=== PATIENT | female | born 1960 | race Caucasian/White ===

== ENCOUNTER 2025-05-19 22:47 | Inpatient (IN) ==
--- NOTE | 2025-05-19 23:12 | Emergency Department Note ---
Impression & Plan Small bowel obstruction Admission ED Provider Note HPI: History obtained from patient and at bedside. The patient is a 65-year-old female who presents the emergency department with a chief complaint of nausea and vomiting. Patient states that she has significant past abdominal surgical history including appendectomy, cholecystectomy, tubal ligation, as well as partial large bowel resection that she states was for "slow transit". Patient states all of the surgeries were done in [place] where she lives, patient states that she is currently in town visiting family for the holidays. Patient states earlier today she developed some generalized abdominal pain and had several episodes of vomiting. She states this does feel similar to small bowel obstructions that she has had in the past. On arrival here to the ED the patient is hemodynamically stable, she complains of nausea but otherwise appears to be in no acute distress on my initial assessment. ROS: - Per HPI Differential Diagnosis: Viral gastroenteritis, small bowel obstruction, ischemic bowel, acute colitis, acute pancreatitis, acute gastritis/peptic ulcer disease, amongst other potential pathologies. *Outpatient medications and allergy history reviewed. PE: General: Alert, obese, no acute distress HEENT: Normocephalic, trachea midline Eyes: Extraocular eye movement is intact, no scleral erythema Pulmonary: Clear to auscultation bilaterally, no wheezing Cardio: Regular rate and rhythm GI: Abdomen is soft to palpation, moderate distention, there is tenderness to palpation without guarding or rigidity : No suprapubic tenderness MSK: No evidence of trauma or malformation of the extremities, no edema Skin: No evidence of rash Neuro: Alert, no focal deficits Psychiatric: Cooperative INDEPENDENT INTERPRETATIONS: cardiac monitor technician: (As interpreted by myself): - An order was placed for continuous cardiac monitoring - Patient was noted to be in sinus rhythm with a rate of 75 Interventions provided in ED: - IV fluid bolus, IV morphine, IV Zofran Medical Decision Making: IV was established and lab work obtained, patient was placed on hall monitor. Lab work shows no leukocytosis, hemoglobin is normal, platelet count is normal, CMP does not show any evidence of any critical findings. Lactic acid is normal. CT imaging of the abdomen pelvis was obtained, there is evidence of small bowel obstruction. Patient was given IV fluids as well as IV morphine and IV Zofran with some improvement in her pain. She initially declined NG tube but then was in agreement. General surgery was consulted, I discussed the patient's presentation with Clayton Garcia PA-C, he is working with Dr. Chandler Garcia. They are in agreement for consultation. I also did discuss the patient's case with the on- call hospitalist, Dr. Patino, and the patient was placed for admission in stable condition. Patient was in agreement to this plan, all findings were discussed with the patient and her at the bedside. Consultants/Discussions held with other healthcare providers: - General Surgery, Dr. Chandler Garcia - Hospitalist, Dr. Patino Disposition discussion held by myself with: - Patient and at bedside Diagnosis: 1. Small bowel obstruction, acute Disposition: Admission Cortez Jones DO Emergency Medicine Past Med/Surg History Problem List Small bowel obstruction Medical History Hx of migraines Bipolar 2 disorder Depression Surgical History History of exploratory laparotomy History of partial colectomy History of cholecystectomy History of appendectomy History of tonsillectomy Social History Smoking Status: Never smoker Preferred Language: Macedonian Feels Safe at Home: Yes Allergies Allergies Allergy/AdvReac Type Severity Reaction Status Date / Time nitrofurantoin Allergy Mild Rash Verified 05/19/25 23:59 [From Macrobid] Home Meds Home Medications Medication Instructions Recorded Confirmed fluticasone propionate 50 2 spray intranasal PM 05/01/24 05/20/25 mcg/actuation nasal spray,suspension lamotrigine 100 mg tablet 150 mg PO QAM 05/01/24 05/20/25 oxdrcerm-ykrwkjq-ynky-lutein tablet 1 tab PO PM 05/01/24 05/20/25 cariprazine 1.5 mg capsule 1.5 mg PO QAM 05/19/25 05/20/25 (Vraylar) quetiapine 100 mg tablet 200 mg PO HS 05/19/25 05/20/25 quetiapine 25 mg tablet 25 mg PO TID PRN MANIC SYMPTOMS 05/19/25 05/20/25 Results & Data (ED) Vital Signs Vital Signs - 24 hr 05/19/25 22:52 05/19/25 23:32 05/19/25 23:42 Temperature 36.9 C Temperature Source Temporal Artery Scan Pulse Rate 78 63 Pulse Rate [Apical] Pulse Rate from SpO2 Sensor Pulse Rhythm Regular Pulse Rhythm [Apical] Pulse Strength Normal Respiratory Rate 18 Respiratory Effort / Characteristics Non-Labored Spontaneous Respiratory Depth Normal Respiratory Pattern Regular Blood Pressure 138/88 Blood Pressure [Left Arm] Blood Pressure Mean 104 Blood Pressure Mean [Left Arm] Blood Pressure Position Sitting Pulse Oximetry 97 97 Oxygen Delivery Method Room Air Room Air Sepsis Recent Fever Within 48 Hours No Sepsis New/Unexplained Change in Mental Status N/A Sepsis Action Taken by Nursing No Action Required 05/20/25 00:37 05/20/25 01:00 05/20/25 01:30 Temperature Temperature Source Pulse Rate 61 56 L Pulse Rate [Apical] 65 Pulse Rate from SpO2 Sensor 59 L 56 L Pulse Rhythm Pulse Rhythm [Apical] Regular Pulse Strength Respiratory Rate 16 19 17 Respiratory Effort / Characteristics Non-Labored Spontaneous Respiratory Depth Normal Respiratory Pattern Regular Blood Pressure Blood Pressure [Left Arm] 129/71 Blood Pressure Mean Blood Pressure Mean [Left Arm] 90 Blood Pressure Position Pulse Oximetry 98 90 94 Oxygen Delivery Method Room Air Room Air Room Air Sepsis Recent Fever Within 48 Hours Sepsis New/Unexplained Change in Mental Status Sepsis Action Taken by Nursing 05/20/25 01:45 05/20/25 02:00 05/20/25 02:30 Temperature Temperature Source Pulse Rate 61 66 72 Pulse Rate [Apical] Pulse Rate from SpO2 Sensor 63 Pulse Rhythm Pulse Rhythm [Apical] Pulse Strength Respiratory Rate 17 16 15 Respiratory Effort / Characteristics Respiratory Depth Respiratory Pattern Blood Pressure 121/72 137/79 116/72 Blood Pressure [Left Arm] Blood Pressure Mean 88 98 86 Blood Pressure Mean [Left Arm] Blood Pressure Position Pulse Oximetry 91 95 98 Oxygen Delivery Method Room Air Room Air Room Air Sepsis Recent Fever Within 48 Hours Sepsis New/Unexplained Change in Mental Status Sepsis Action Taken by Nursing Laboratory Data 05/19/25 23:32 05/19/25 23:32 Lab Results 05/19/25 Range/Units 23:32 WBC 7.70 (4.8-10.8) K/ul RBC 4.48 (4.20-5.40) M/uL Hgb 13.6 (12.0-16.0) g/dL Hct 38.9 (37.0-47.0) % MCV 86.8 (80.0-100.0) fL MCH 30.4 (25.0-34.0) pg MCHC 35.0 (32.0-36.0) g/dL RDW Std Deviation 40.6 (36.4-46.3) fL RDW Coeff of Lissette 12.8 (11.5-14.5) % Plt Count 269 (130-400) K/uL MPV 8.7 L (9.4-12.4) fL Immature Gran % (Auto) 0.4 % Neut % (Auto) 82.9 % Lymph % (Auto) 11.6 % [place] % (Auto) 4.4 % Eos % (Auto) 0.3 % Baso % (Auto) 0.4 % Neut # (Auto) 6.39 (1.40-6.50) K/uL Lymph # (Auto) 0.89 L (1.20-3.40) K/uL [place] # (Auto) 0.34 (0.11-0.59) K/uL Eos # (Auto) 0.02 (0.00-0.50) K/uL Baso # (Auto) 0.03 (0.00-0.20) K/uL Immature Gran # (Auto) 0.03 (0.01-0.20) K/uL PT 11.0 (9.0-12.0) Seconds INR 1.0 (0.9-1.1) Sodium 138 (136-145) mmol/L Potassium 4.0 (3.5-5.1) mmol/L Chloride 102 (98-107) mmol/L Carbon Dioxide 26 (21-32) mmol/L Anion Gap 10 (3-11) BUN 16 (6-23) mg/dl Creatinine 0.83 (0.6-1.2) mg/dl Est Cr Clr Drug Dosing 78.4 ml/min eGFR 78.18 BUN/Creatinine Ratio 19.3 (10-20) Glucose 129 H (70-99(Fasting)) mg/dl Lactate 1.4 (0.4-2.0) mmol/L Calcium 10.1 (8.6-10.3) mg/dl Total Bilirubin 0.9 (0.2-1.0) mg/dl AST 19 (13-39) U/L ALT 16 (7-52) U/L Alkaline Phosphatase 53 (34-104) U/L Total Protein 7.5 (6.0-8.3) gm/dl Albumin 4.6 (3.4-5.0) gm/dl Globulin 2.9 (2.5-4.0) gm/dl Albumin/Globulin Ratio 1.6 (0.9-2) Lipase 7 L (11-82) U/L Administered Medications Sodium Chloride (Nss) 1,000 mls @ 100 mls/hr IV .Q10H ABELARDO Stop: 05/20/25 23:14 Last Admin: 05/20/25 03:13 Dose: 100 mls/hr Documented By: vgr Discontinued Medications Sodium Chloride (Nss) 1,000 mls @ 999 mls/hr IV .Q1H1M STA Stop: 05/20/25 00:06 Last Infusion: 05/20/25 00:40 Dose: Infused Documented By: Admin: 05/19/25 23:39 Dose: 999 mls/hr Documented By: KISHORE Ioversol (Optiray 320 100ml) 94 ml IV ONCE ONE Stop: 05/20/25 00:18 Last Admin: 05/20/25 00:18 Dose: 94 ml Documented By: ESTHER Morphine Sulfate (Morphine Sulfate 4 Mg/Ml 1 Ml Carp\\Vial) 4 mg IV NOW STA Stop: 05/19/25 23:07 Last Admin: 05/19/25 23:35 Dose: 4 mg Documented By: KISHORE Morphine Sulfate (Morphine Sulfate 4 Mg/Ml 1 Ml Carp\\Vial) 4 mg IV NOW STA Stop: 05/20/25 00:46 Last Admin: 05/20/25 00:49 Dose: 4 mg Documented By: KISHORE Morphine Sulfate (Morphine Sulfate 4 Mg/Ml 1 Ml Carp\\Vial) 4 mg IV NOW STA Stop: 05/20/25 03:03 Last Admin: 05/20/25 03:07 Dose: 4 mg Documented By: janette Ondansetron HCl (Ondansetron Inj 2 Mg/Ml 2 Ml Vial) 4 mg IV NOW STA Stop: 05/19/25 23:07 Last Admin: 05/19/25 23:35 Dose: 4 mg Documented By: KISHORE Imaging Data Radiologist's Impression: Abdomen/Pelvis CT 05/19/25 23:06 EXAM: CT abd pelvis IV con only CLINICAL HISTORY: N/V, eval for SBO TECHNIQUE: CT of the abdomen and pelvis was performed with 94cc Optiray 320 contrast, with the following protocol: axial images with, and reconstructed coronal and sagittal images. One of the following dose reduction techniques was utilized for this exam: Automated exposure control, adjustment of the mA and/or kV according to patient size, and use of iterative reconstruction. COMPARISON: 05/01/2024 CT. FINDINGS: Abdomen: Liver: Normal in size, shape, and density. No focal lesions, cysts, or masses were identified. Hepatic vasculature and biliary ducts are unremarkable. Gallbladder and Biliary System: Cholecystectomy clips are noted. Pancreas: Pancreatic head, body, and tail are visualized and appear normal in size and density. No pancreatic masses or calcifications were noted. The pancreatic duct is not dilated. Spleen: Normal in size, shape, and density. No splenic lesions or masses were identified. Kidneys and Adrenal Glands: Both kidneys are normal in size, shape, and position. Still noted left renal upper calyx small stone measuring 21x26 mm. Cortical thickness is within normal limits. Prominent bilateral extrarenal pelvises. No right renal calculi or bilateral hydronephrosis. Adrenal glands are unremarkable with no evidence of masses or hyperplasia. Pelvis: Urinary Bladder: Normal in contour and wall thickness. No intraluminal lesions identified. Uterus: Normal in size and contour. No masses or abnormal thickening. Ovaries: Not well visualized but no gross abnormalities noted. Vagina: Still noted dense soft tissue surrounding the perineum. Cervix: No evidence of mass or abnormal thickening. Peritoneal and Retroperitoneal Structures: No lymphadenopathy was noted. Bowel: Unchanged diastases recti. Post-colectomy status with ileocolic anastomosis. Newly developed multiple dilated small bowel loops, predominantly involving the ileum, measuring up to 4 cm in diameter, with air?fluid levels and fecalized contents. A transition point is noted within the ileal loops, associated with uniform mural thickening, likely related to post-operative, adhesive band, or inflammatory changes. No definite obstructing mass is identified. No evidence of pneumoperitoneum. The ileocolic anastomosis also shows a focal dilatation of a small bowel loop associated with fecal matter. Minimal intraperitoneal free fluid is seen in-between bowel loops. Still noted uniform thickening of the gastroesophageal junction. Bones and Soft Tissues: Pelvic bones and soft tissues are unremarkable. No fractures or abnormal masses were identified. IMPRESSION: 1. Post-colectomy with ileocolic anastomosis. Findings are consistent with small bowel obstruction, predominantly involving the ileum, with a transition point, dilated loops, fecalized content and minimal free fluid. Likely post-operative, adhesive band or inflammatory in etiology (A new finding). No definite mass or pneumoperitoneum identified. 2. Left renal upper calyx stone (21×26 mm) persists. 3. Unchanged dense soft tissue noted surrounding the perineum. Clinical correlation is advised. Electronically signed by Geovany Cyr 05-20-2025 02:04 AM Discharge Plan Visit Data Chief Complaint: GI Assessment Stated Complaint: OBSTRUCTED BOWEL, ABD PAIN, VOMITTING ED Provider: Cortez Jones Discharge Problem: Small bowel obstruction Patient Disposition: Admitted As Inpatient Condition: Fair Forms Stand Alone Forms: [facility] Prescriptions Prescriptions: No Action fluticasone propionate 50 mcg/actuation spray,suspension 2 spray INTRANASAL PM lamotrigine 100 mg tablet 150 mg PO QAM Centrum Silver Ultra Women's Tablet 1 tab PO PM quetiapine 25 mg tablet 25 mg PO TID PRN (Reason: MANIC SYMPTOMS) quetiapine 100 mg tablet 200 mg PO HS Vraylar 1.5 mg capsule 1.5 mg PO QAM Referrals Referrals: PCP,NO [Physician] -
[2025-05-19] MEDS: ONDANSETRON INJ 2 MG/ML 2 ML VIAL IV STA (23:35)
[2025-05-19] MEDS: MoRPHine SULFATE 4 MG/ML 1 ML CARP\\VIAL IV STA (23:35)
[2025-05-19] MEDS: SODIUM CHLORIDE 0.9% 1,000 ML IV STA (23:39)
[2025-05-19 23:43] LABS: Hematocrit (blood only) 38.9 % (37.0-47.0); Hemoglobin 13.6 g/dL (12.0-16.0); Immature Granulocytes # (auto) 0.03 K/uL (0.01-0.20); Immature Granulocytes % (auto) 0.4 %; Mean Corpuscular Hemoglobin 30.4 pg (25.0-34.0); Mean Corpuscular Volume 86.8 fL (80.0-100.0); Platelet Count 269 K/uL (130-400); RDW Standard Deviation 40.6 fL (36.4-46.3); Red Blood Count 4.48 M/uL (4.20-5.40); White Blood Count 7.70 K/ul (4.8-10.8)
[2025-05-20 00:02] LABS: Alanine Aminotransferase 16.0 U/L (7-52); Albumin Globulin Ratio 1.6 (0.9-2); Albumin Level 4.6 gm/dl (3.4-5.0); Alkaline Phosphatase 53.0 U/L (34-104); Anion Gap 10.0 (3-11); Bilirubin,Total 0.9 mg/dl (0.2-1.0); Blood Urea Nitrogen 16.0 mg/dl (6-23); Calcium 10.1 mg/dl (8.6-10.3); Carbon Dioxide 26.0 mmol/L (21-32); Chloride 102.0 mmol/L (98-107); Creatinine Clr Calc Pharmacy 78.4 ml/min; Globulin 2.9 gm/dl (2.5-4.0); Glucose 129.0 mg/dl (70-99(Fasting)); Lipase 7.0 U/L (11-82); Potassium 4.0 mmol/L (3.5-5.1); Sodium 138.0 mmol/L (136-145); Total Protein 7.5 gm/dl (6.0-8.3)
[2025-05-20 00:17] LABS: INR 1.0 (0.9-1.1); Prothrombin Time 11.0 Seconds (9.0-12.0)
[2025-05-20] MEDS: OPTIRAY 320 100ml IV ONE (00:18)
[2025-05-20] MEDS: MoRPHine SULFATE 4 MG/ML 1 ML CARP\\VIAL IV STA ×2 (00:49→03:07)
--- NOTE | 2025-05-20 02:04 | CT Scan Report ---
EXAM: CT abd pelvis IV con only CLINICAL HISTORY: N/V, eval for SBO TECHNIQUE: CT of the abdomen and pelvis was performed with 94cc Optiray 320 contrast, with the following protocol: axial images with, and reconstructed coronal and sagittal images. One of the following dose reduction techniques was utilized for this exam: Automated exposure control, adjustment of the mA and/or kV according to patient size, and use of iterative reconstruction. COMPARISON: 05/01/2024 CT. FINDINGS: Abdomen: Liver: Normal in size, shape, and density. No focal lesions, cysts, or masses were identified. Hepatic vasculature and biliary ducts are unremarkable. Gallbladder and Biliary System: Cholecystectomy clips are noted. Pancreas: Pancreatic head, body, and tail are visualized and appear normal in size and density. No pancreatic masses or calcifications were noted. The pancreatic duct is not dilated. Spleen: Normal in size, shape, and density. No splenic lesions or masses were identified. Kidneys and Adrenal Glands: Both kidneys are normal in size, shape, and position. Still noted left renal upper calyx small stone measuring 21x26 mm. Cortical thickness is within normal limits. Prominent bilateral extrarenal pelvises. No right renal calculi or bilateral hydronephrosis. Adrenal glands are unremarkable with no evidence of masses or hyperplasia. Pelvis: Urinary Bladder: Normal in contour and wall thickness. No intraluminal lesions identified. Uterus: Normal in size and contour. No masses or abnormal thickening. Ovaries: Not well visualized but no gross abnormalities noted. Vagina: Still noted dense soft tissue surrounding the perineum. Cervix: No evidence of mass or abnormal thickening. Peritoneal and Retroperitoneal Structures: No lymphadenopathy was noted. Bowel: Unchanged diastases recti. Post-colectomy status with ileocolic anastomosis. Newly developed multiple dilated small bowel loops, predominantly involving the ileum, measuring up to 4 cm in diameter, with air?fluid levels and fecalized contents. A transition point is noted within the ileal loops, associated with uniform mural thickening, likely related to post-operative, adhesive band, or inflammatory changes. No definite obstructing mass is identified. No evidence of pneumoperitoneum. The ileocolic anastomosis also shows a focal dilatation of a small bowel loop associated with fecal matter. Minimal intraperitoneal free fluid is seen in-between bowel loops. Still noted uniform thickening of the gastroesophageal junction. Bones and Soft Tissues: Pelvic bones and soft tissues are unremarkable. No fractures or abnormal masses were identified. IMPRESSION: 1. Post-colectomy with ileocolic anastomosis. Findings are consistent with small bowel obstruction, predominantly involving the ileum, with a transition point, dilated loops, fecalized content and minimal free fluid. Likely post-operative, adhesive band or inflammatory in etiology (A new finding). No definite mass or pneumoperitoneum identified. 2. Left renal upper calyx stone (21×26 mm) persists. 3. Unchanged dense soft tissue noted surrounding the perineum. Clinical correlation is advised. Electronically signed by Geovany Cyr 05-20-2025 02:04 AM
--- NOTE | 2025-05-20 03:10 | History & Physical Report ---
Date of Service May 20, 2025 Assessment & Plan (1) Small bowel obstruction: Plan: Assessment/plan Small bowel obstruction History of multiple surgeries ( Appendectomy, cholecystectomy, colectomy) Patient presents with abdomen pain and nausea for 1 day hx of multiple bowel surgeries and recurrent SBO. Visiting family from [place] No leukocytosis present. CT abdomen/pelvis shows post colectomy with ileocolic anastomosis, findings consistent with SBO. Will start bowel rest with NPO. Surgery on board for consultation IV fluids with NS at 100 cc/h Pain control with IV Tylenol and morphine as needed Bipolar disordercontinued home meds Full code DVT prophylaxis heparin Time spent evaluating patient, direct bedside care, chart review, placing orders, interpretation of diagnostic studies, discussion with consultants, patient, and family members, as well as other required patient management activities is 60 minutes Please note the above document was generated using voice recognition software. It may contain grammatical, syntax or spelling errors. Any formal questions or concerns about the content, text or information contained within the body of this dictation should be directly addressed to the provider for clarification History of Present Illness Chief Complaint: Abdomen pain and nausea for 1 day Primary Care Provider: ADRIANNE GRACE History obtained from interview with the patient, discussion with the ED provider and chart review Past medical history of multiple bowel surgery including appendectomy, cholecystectomy, bowel resection for slow transit, bipolar disorder Patient presents to the hospital with abdominal pain, nausea for 1 day. Abdominal pain is in periumbilical region, intermittent; associated with nausea. Patient had multiple history of bowel obstruction in the past. She is traveling from [place] and [facility] and reports eating diet with more fiber recently. Her last admission to the hospital for small bowel obstruction was in October of this year in [place]. On presentation to the ED, she was afebrile, normotensive and saturating well on room air. CT abdomen/pelvis shows post colectomy with ileocolic anastomosis, findings consistent with SBO. Patient was evaluated by general surgery and was referred for further admission Allergies Allergy/AdvReac Type Severity Reaction Status Date / Time nitrofurantoin Allergy Mild Rash Verified 05/19/25 23:59 [From Macrobid] Home Medications Medication Instructions Recorded Confirmed Type fluticasone propionate 50 2 spray intranasal PM 05/01/24 05/20/25 History mcg/actuation nasal spray,suspension lamotrigine 100 mg tablet 150 mg PO QAM 05/01/24 05/20/25 History xgnditub-wczzfoz-ydih-lutein tablet 1 tab PO PM 05/01/24 05/20/25 History cariprazine 1.5 mg capsule 1.5 mg PO QAM 05/19/25 05/20/25 History ([place]) quetiapine 100 mg tablet 200 mg PO HS 05/19/25 05/20/25 History quetiapine 25 mg tablet 25 mg PO TID PRN MANIC SYMPTOMS 05/19/25 05/20/25 History Past Med/Surg History Problem List (Updated 05/20/25 @ 03:12 by Brenden Patino MD) Small bowel obstruction Medical History Hx of migraines Bipolar 2 disorder Depression Surgical History History of exploratory laparotomy History of partial colectomy History of cholecystectomy History of appendectomy History of tonsillectomy Social History Smoking Status: Never smoker Preferred Language: Citizen Of [place] Feels Safe at Home: Yes Review of Systems Review of Systems: All systems reviewed & are unremarkable except as noted in Subjective Physical Exam Physical Exam: Constitutional: WD/WN, vitals as above, NAD, sitting up in bed, pleasant, conversing easily Respiratory: normal respiratory effort, lungs clear to auscultation, no wheeze, rales, rhonchi. Normal insp/exp effort, no accessory muscle use Cardiovascular: RRR, no murmur, no edema Vessels: no JVD or carotid bruit Chest: normal inspection of chest Abdomen: Slightly distended, and mildly tender in the periumbilical region. Bowels sounds hyperactive Musculoskeletal: no cyanosis or clubbing, extremities motor strength 5/5 Skin: no rashes, warm and dry normal turgor Neurologic: PERRL, EOMI, accommodation nl, no face palsy, no dysarthria CN's II- XI intact bilaterally and moves all extremities Psychiatric: A+Ox3, euthymic affect Results & Data Results & Data Vital Signs (Past 12 Hours) Vital Signs Temp Pulse Pulse Resp BP BP Pulse Ox 05/20/25 02:30 72 15 116/72 98 05/20/25 02:00 66 16 137/79 95 05/20/25 01:45 61 17 121/72 91 05/20/25 01:30 56 L 17 94 05/20/25 01:00 61 19 90 05/20/25 00:37 65 16 129/71 98 05/19/25 23:42 63 05/19/25 23:32 97 05/19/25 22:52 36.9 C 78 18 138/88 97 O2 Del Method 05/20/25 02:30 Room Air 05/20/25 02:00 Room Air 05/20/25 01:45 Room Air 05/20/25 01:30 Room Air 05/20/25 01:00 Room Air 05/20/25 00:37 Room Air 05/19/25 23:42 05/19/25 23:32 Room Air 05/19/25 22:52 Room Air
[2025-05-20] MEDS: SODIUM CHLORIDE 0.9% 1,000 ML IV SCH (03:13)
--- NOTE | 2025-05-20 03:49 | Surgery Consultation ---
Date of Consultation May 20, 2025 Assessment & Plan (1) Small bowel obstruction: Plan Patient is a 65-year-old female with a past medical history significant for bipolar disorder and recurrent SBO, also with a past surgical history significant for subtotal colectomy due to, per the patient, severe constipation and colonic dysmotility, as well as a history of exploratory laparotomy with small bowel resection due to a small bowel obstruction, who presents to [facility] emergency department with complaints of abdominal pain, nausea, and vomiting x [address] findings concerning for a small bowel obstruction. Currently, the patient does have some generalized abdominal pain, but no overt peritoneal signs and no evidence of perforation or free air on CAT scan, so no indication for emergent surgical exploration at this time. Patient currently is refusing NG tube for decompression and states that she is not nauseous, but understands that if she does become nauseous and vomits we will again recommend NG tube placement. Patient explains to me that her last bowel obstruction was in November of this year and she had a Gastrografin challenge which reportedly showed progression of oral contrast to her remaining colon, so she is requesting this. Will discuss this with surgeon in the a.m., but for now we would recommend admission to the medical service for conservative treatment of her SBO, keep n.p.o., IV fluids, IV pain medication, would recommend IV Tylenol and Toradol to avoid narcotics if possible, however she states that the morphine was effective. General surgery will continue to follow for now. Supervising Physician Co-Signing Physician Notes I have seen and examined this patient this am. Pt states she was told at her previous surgery for SBO in [place] that her abdomen was like concrete due to adhesions. So far she feels improved. Continue NPO, IVF and NGT decompression. Surgery will continue to follow. History of Present Illness Reason for Consultation: small bowel obstruction History of Present Illness Patient is a 65-year-old female with a past medical history significant for bipolar disorder and recurrent SBO, who presents to [facility] emergency department complaining of abdominal pain x 1 day. Patient states that her abdominal pain began at approximately 3 PM today while she was relaxing, there was no inciting event or trauma. She localizes her abdominal pain to the upper abdomen and a "bandlike" distribution, described as crampy, seems to come and go but could be quite severe at times, without radiation, and no obvious aggravating or alleviating factors. Patient states that she has had small bowel obstructions in the past, last in November of this year, and this felt similar. She admits to moderate nausea earlier and did vomit which was described as bilious and nonbloody, currently denies nausea. Her abdominal pain seemed to improve after vomiting, the but then recurred and so she came to the emergency department for evaluation. She explains that she is here visiting family from [place] and has had an extensive surgical history including an appendectomy, cholecystectomy, tubal ligation, and a subtotal colectomy due to constipation and colonic dysmotility. She states that these were performed in [place], at [facility] in [facility]. Her colon surgery was performed many years ago and since then she has had several small bowel obstructions, 1 several years ago that required operative intervention and a small bowel resection. She states her last small bowel obstruction was in November of this year which seemed to resolve conservatively after a Gastrografin challenge. The patient was evaluated in the emergency department and was hemodynamically stable and afebrile. Her exam was significant for moderate upper abdominal tenderness, but without overt peritoneal signs. Her labs were relatively unremarkable, and she had a CAT scan of the abdomen pelvis that showed findings of a small bowel obstruction, so general surgery was consulted. Allergies Allergy/AdvReac Type Severity Reaction Status Date / Time nitrofurantoin Allergy Mild Rash Verified 05/19/25 23:59 [From Macrobid] Home Medications Medication Instructions Recorded Confirmed Type fluticasone propionate 50 2 spray intranasal PM 05/01/24 05/20/25 History mcg/actuation nasal spray,suspension lamotrigine 100 mg tablet 150 mg PO QAM 05/01/24 05/20/25 History mjrdhtpb-vlurkqr-omeq-lutein tablet 1 tab PO PM 05/01/24 05/20/25 History cariprazine 1.5 mg capsule 1.5 mg PO QAM 05/19/25 05/20/25 History (Vraylar) quetiapine 100 mg tablet 200 mg PO HS 05/19/25 05/20/25 History quetiapine 25 mg tablet 25 mg PO TID PRN MANIC SYMPTOMS 05/19/25 05/20/25 Camila oquendo Patient History Medical History Hx of migraines Bipolar 2 disorder Depression Surgical History History of exploratory laparotomy History of partial colectomy History of cholecystectomy History of appendectomy History of tonsillectomy Social History Smoking Status: Never smoker Second Hand Exposure: Yes (as a child); Do You Dip or Chew Tobacco: No; Hx Alcohol Use: No Hx Substance Use: No Preferred Language: Macedonian Communication Ability: Effective History Instructor Required: No Beliefs That Will Affect Care: None Current Living Situation: Spouse and Family Other Information That Helps Us Care for You: No Feels Safe at Home: Yes Safety Concerns: Feels Safe At This Time Review of Systems Review of Systems: All systems reviewed & are unremarkable except as noted in HPI & below Physical Exam Physical Exam: Gen: Awake and alert, resting comfortably in bed in NAD CV: RRR PULM: non-labored breathing Abd: Abd obese, soft, mildly distended, mild generalized tenderness to palpation, no guarding or rigidity, no peritoneal signs. ext: no edema to bilateral lower ext, non-tender, feet warm and well perfused Results & Data Vital Signs (Past 12 Hours) Vital Signs Temp Pulse Pulse Resp BP BP Pulse Ox 05/20/25 02:30 72 15 116/72 98 05/20/25 02:00 66 16 137/79 95 05/20/25 01:45 61 17 121/72 91 05/20/25 01:30 56 L 17 94 05/20/25 01:00 61 19 90 05/20/25 00:37 65 16 129/71 98 05/19/25 23:42 63 05/19/25 23:32 97 05/19/25 22:52 36.9 C 78 18 138/88 97 O2 Del Method 05/20/25 02:30 Room Air 05/20/25 02:00 Room Air 05/20/25 01:45 Room Air 05/20/25 01:30 Room Air 05/20/25 01:00 Room Air 05/20/25 00:37 Room Air 05/19/25 23:42 05/19/25 23:32 Room Air 05/19/25 22:52 Room Air Diagnostic Findings IMPRESSION: 1. Post-colectomy with ileocolic anastomosis. Findings are consistent with small bowel obstruction, predominantly involving the ileum, with a transition point, dilated loops, fecalized content and minimal free fluid. Likely post-operative, adhesive band or inflammatory in etiology (A new finding). No definite mass or pneumoperitoneum identified. 2. Left renal upper calyx stone (21×26 mm) persists. 3. Unchanged dense soft tissue noted surrounding the perineum. Clinical correlation is advised PG Care Time/CCT Total # of Minutes Spent Total Time Spent with Patient: Total time spent is greater than 50% in coordination of care (as documented) at patient's floor/unit and/or counseling patient: [place] [address] IN/OBS CONSULT LVL 5,80M Patient Type New Medical Decision Making Straight Forward Diagnoses Small bowel obstruction K56.609
[2025-05-20 05:17] LABS: Anion Gap 9.0 (3-11); Blood Urea Nitrogen 13.0 mg/dl (6-23); Calcium 9.5 mg/dl (8.6-10.3); Carbon Dioxide 26.0 mmol/L (21-32); Chloride 104.0 mmol/L (98-107); Creatinine Clr Calc Pharmacy 86.8 ml/min; Glucose 130.0 mg/dl (70-99(Fasting)); Potassium 4.1 mmol/L (3.5-5.1); Sodium 139.0 mmol/L (136-145)
--- NOTE | 2025-05-20 05:20 | XRay Report ---
EXAM: XR KUB/Abdomen 1 view CLINICAL HISTORY: NG confirmation TECHNIQUE: Radiograph of kub/abdomen was acquired. COMPARISON: None. FINDINGS: Nasogastric tube is seen with its tip not identified in the field of view. Non-obstructive, non-specific bowel gas pattern. No significant air fluid levels. No evidence of air under diaphragm. No obvious radio opacity overlying kidneys/ureters. No obvious organomegaly. Bony shadows appear unremarkable. IMPRESSION: 1. Nasogastric tube is seen with its tip not identified in the field of view. Electronically signed by Anirudh Cardenas 05-20-2025 05:19 AM
--- NOTE | 2025-05-20 05:22 | XRay Report ---
EXAM: XR KUB/Abdomen 1 view CLINICAL HISTORY: NG tube adjustment TECHNIQUE: Radiograph of kub/abdomen was acquired. 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 FINDINGS: Nasogastric tube is seen insitu with its tip in the upper abdomen in the region of stomach. Non-obstructive, non-specific bowel gas pattern. No significant air fluid levels. No evidence of air under diaphragm. No obvious radio opacity overlying kidneys/ureters/urinary bladder. No obvious organomegaly. Bony shadows appear unremarkable. IMPRESSION: 1. Nasogastric tube is seen insitu with its tip in the upper abdomen in the region of stomach. Electronically signed by Anirudh Cardenas 05-20-2025 05:22 AM
[2025-05-20] MEDS: ONDANSETRON INJ 2 MG/ML 2 ML VIAL IV PRN ×2 (07:55→12:08)
[2025-05-20] MEDS: HEPARIN SOD 5,000 UNIT/0.5 ML VIAL SQ SCH (08:04)
[2025-05-20] MEDS: MoRPHine SULFATE 2 MG/ML CARP IV PRN (08:14)
[2025-05-20] MEDS: lamoTRIgine 25 MG TAB PO SCH (08:18)
[2025-05-20] MEDS: CARIPRAZINE HCL 1.5 MG CAP PO SCH (08:18)
--- NOTE | 2025-05-20 10:26 | Hospitalist Progress Note ---
Date of Service May 20, 2025 Assessment & Plan (1) Small bowel obstruction: Plan: #Small bowel obstruction History of multiple surgeries ( Appendectomy, cholecystectomy, colectomy) -CT abdomen/pelvis shows post colectomy with ileocolic anastomosis, findings consistent with SBO -NG tube placed 05/20 -NO BM yet. not passing gas -Surgery following Plan -Appreciate surgery input -NPO. Continue IVF -NG tube per surgery -Daily labs -Pain control -Encourage ambulation #Mood disorder -Continue home regimen even while NPO -She is on lamictal and this can be difficult to resume if stopped completely due to risk of SJS I spent a total of 45 minutes coordinating, documenting, and providing care for this patient excluding time spent in the performance of separately billed services. This included personally reviewing all current laboratories and imaging studies, medical reconciliation, outpatient chart review and discussion with specialists Admission and Anticipated Discharge Date Admission Date: May 20, 2025 Subjective Seen in ED bed A11. feeling better now that NG tube is in place. pain much improved as well. Not yet passing gas. no other complaints. Physical Exam Physical Exam: Vitals and labs reviewed General: Well appearing, NAD HEENT: EOMI, PERRLA Neck: Supple Cardiac: RRR no rubs gallops or murmurs Lungs: CTA no rhonchi wheezing or rales Abd: NG tube. BS absent. NT ND : No garcia MSK: Full ROM. No obvious deformities Ext: No Edema cyanosis Skin: Warm, Dry Neuro: AOx3 No focal deficits. Psych: Normal Mood Results & Data Results & Data Vital Signs (Past 12 Hours) Vital Signs Temp Pulse Pulse Resp BP BP Pulse Ox 05/20/25 07:00 59 L 18 143/80 H 05/20/25 06:59 62 05/20/25 05:29 60 20 143/77 H 93 05/20/25 04:13 56 L 05/20/25 03:56 58 L 16 117/66 94 05/20/25 02:30 72 15 116/72 98 05/20/25 02:00 66 16 137/79 95 05/20/25 01:45 61 17 121/72 91 05/20/25 01:30 56 L 17 94 05/20/25 01:00 61 19 90 05/20/25 00:37 65 16 129/71 98 05/19/25 23:42 63 05/19/25 23:32 97 05/19/25 22:52 36.9 C 78 18 138/88 97 O2 Del Method 05/20/25 07:00 05/20/25 06:59 05/20/25 05:29 Room Air 05/20/25 04:13 05/20/25 03:56 Room Air 05/20/25 02:30 Room Air 05/20/25 02:00 Room Air 05/20/25 01:45 Room Air 05/20/25 01:30 Room Air 05/20/25 01:00 Room Air 05/20/25 00:37 Room Air 05/19/25 23:42 05/19/25 23:32 Room Air 05/19/25 22:52 Room Air Laboratory Results Abnormal lab results 05/19/25 05/20/25 Range/Units 23:32 04:24 MPV 8.7 L (9.4-12.4) fL Lymph # (Auto) 0.89 L (1.20-3.40) K/uL Glucose 129 H 130 H (70-99(Fasting)) mg/dl Lipase 7 L (11-82) U/L
[2025-05-20] MEDS: ACETAMINOPHEN 1,000 MG/100 ML VIAL IV PRN (15:50)
[2025-05-20] MEDS: CEROVITE ADV FORMULA TAB PO SCH (21:45)
[2025-05-20] MEDS: FLUTICASONE PROPIONATE NA SPR 16 GM BTL SCH (21:45)
[2025-05-21 07:30] LABS: Hematocrit (blood only) 35.8 % (37.0-47.0); Hemoglobin 12.1 g/dL (12.0-16.0); Mean Corpuscular Hemoglobin 29.7 pg (25.0-34.0); Mean Corpuscular Volume 88.0 fL (80.0-100.0); Platelet Count 209 K/uL (130-400); RDW Standard Deviation 41.2 fL (36.4-46.3); Red Blood Count 4.07 M/uL (4.20-5.40); White Blood Count 3.23 K/ul (4.8-10.8)
[2025-05-21 07:50] LABS: Alanine Aminotransferase 13.0 U/L (7-52); Albumin Globulin Ratio 1.6 (0.9-2); Albumin Level 3.8 gm/dl (3.4-5.0); Alkaline Phosphatase 42.0 U/L (34-104); Anion Gap 6.0 (3-11); Bilirubin,Total 1.0 mg/dl (0.2-1.0); Blood Urea Nitrogen 17.0 mg/dl (6-23); Calcium 8.7 mg/dl (8.6-10.3); Carbon Dioxide 28.0 mmol/L (21-32); Chloride 107.0 mmol/L (98-107); Creatinine Clr Calc Pharmacy 112.3 ml/min; Globulin 2.4 gm/dl (2.5-4.0); Glucose 101.0 mg/dl (70-99(Fasting)); Potassium 3.5 mmol/L (3.5-5.1); Sodium 141.0 mmol/L (136-145); Total Protein 6.2 gm/dl (6.0-8.3)
--- NOTE | 2025-05-21 10:06 | Hospitalist Progress Note ---
Date of Service May 21, 2025 Assessment & Plan (1) Small bowel obstruction: Plan: #Small bowel obstruction History of multiple surgeries ( Appendectomy, cholecystectomy, colectomy) -CT abdomen/pelvis shows post colectomy with ileocolic anastomosis, findings consistent with SBO -NG tube placed 05/20 -Large brown BM on 05/21 -Surgery following Plan -Appreciate surgery input -NPO for now. Continue IVF -NG tube per surgery. Clamped this AM -Protonix IV for now -Daily labs -Pain control -Encourage ambulation #Mood disorder -Continue home regimen even while NPO -She is on lamictal and this can be difficult to resume if stopped completely due to risk of SJS I spent a total of 48 minutes coordinating, documenting, and providing care for this patient excluding time spent in the performance of separately billed services. This included personally reviewing all current laboratories and imaging studies, medical reconciliation, outpatient chart review and discussion with specialists Admission and Anticipated Discharge Date Admission Date: May 20, 2025 Subjective Feeling well today and denies any complaints. no pain today. When seen she had not yet had a bowel movement but did have a large bm 30 minutes later. Physical Exam Physical Exam: Vitals and labs reviewed General: Well appearing, NAD HEENT: EOMI, PERRLA Neck: Supple Cardiac: RRR no rubs gallops or murmurs Lungs: CTA no rhonchi wheezing or rales Abd: NG tube. BS positive. NT ND : No garcia MSK: Full ROM. No obvious deformities Ext: No Edema cyanosis Skin: Warm, Dry Neuro: AOx3 No focal deficits. Psych: Normal Mood Results & Data Results & Data Vital Signs (Past 12 Hours) Vital Signs Temp Pulse Resp BP Pulse Ox O2 Del Method 05/21/25 07:29 36.7 C 60 15 106/68 94 Room Air 05/20/25 22:35 36.9 C 69 18 106/64 95 Room Air Laboratory Results Abnormal lab results 05/21/25 Range/Units 07:09 WBC 3.23 L (4.8-10.8) K/ul RBC 4.07 L (4.20-5.40) M/uL Hct 35.8 L (37.0-47.0) % MPV 8.6 L (9.4-12.4) fL Creatinine 0.58 L (0.6-1.2) mg/dl BUN/Creatinine Ratio 29.3 H (10-20) Glucose 101 H (70-99(Fasting)) mg/dl Globulin 2.4 L (2.5-4.0) gm/dl
--- NOTE | 2025-05-21 10:16 | Surgery Progress Note ---
Date of Service May 21, 2025 Assessment & Plan (1) Small bowel obstruction: Plan: Patient seen evaluated this morning with Dr. Navarrete patient states that she is feeling better this morning and has no complaints. -Recommend keeping NGT in place for now until return of bowel function. If patient starts to pass gas could potentially perform clamping trial later this afternoon to see how patient does. - Continue NPO, IV hydration, and pain control -IV Protonix - No plans for surgical intervention, will continue to treat conservatively for now. Medical management per primary team, surgery will follow. Admission and Anticipated Discharge Date Admission Date: May 20, 2025 Subjective Patient seen and evaluated this morning, no acute complaints During evaluation this morning patient denied any bowel movement or passing gas. NG tube remain in place with 950cc recorded output Physical Exam Constitutional: WD/WN, vitals as above Respiratory: normal respiratory effort, lungs clear to auscultation Cardiovascular: Rate/Rhythm: regular rate Gastrointestinal (Abdomen): Abdomen soft, nondistended, nontender to palpation NG tube in place to low intermittent suction Results & Data Vital Signs (Past 12 Hours) Vital Signs Temp Pulse Resp BP Pulse Ox O2 Del Method 05/21/25 07:29 36.7 C 60 15 106/68 94 Room Air 05/20/25 22:35 36.9 C 69 18 106/64 95 Room Air PG Care Time/CCT Total # of Minutes Spent Total Time Spent with Patient: Total time spent is greater than 50% in coordination of care (as documented) at patient's floor/unit and/or counseling patient: Coding [place] [address] SUB INP/OBS CARE 06/17MIN Patient Type Established History Problem Focused Exam Problem Focused Medical Decision Making Straight Forward Diagnoses Small bowel obstruction K56.609
[2025-05-21] MEDS: D5W AND LACTATED RINGERS 1,000 ML IV SCH (12:53)
[2025-05-21] MEDS: PANTOprazole 40 MG/10 ML SYR IV SCH (13:41)
[2025-05-21] MEDS ORDERED: PANTOprazole 40 MG/10 ML SYR IV SCH (21:00)
[2025-05-22] MEDS: RIZATRIPTAN BENZOATE 10 MG TAB PO STA (01:58)
[2025-05-22 08:26] LABS: Hematocrit (blood only) 35.0 % (37.0-47.0); Hemoglobin 12.0 g/dL (12.0-16.0); Mean Corpuscular Hemoglobin 29.7 pg (25.0-34.0); Mean Corpuscular Volume 86.6 fL (80.0-100.0); Platelet Count 204 K/uL (130-400); RDW Standard Deviation 40.1 fL (36.4-46.3); Red Blood Count 4.04 M/uL (4.20-5.40); White Blood Count 4.12 K/ul (4.8-10.8)
[2025-05-22 08:35] LABS: Albumin Level 3.9 gm/dl (3.4-5.0); Anion Gap 8.0 (3-11); Bilirubin,Total 1.0 mg/dl (0.2-1.0); Calcium 9.0 mg/dl (8.6-10.3); Carbon Dioxide 28.0 mmol/L (21-32); Chloride 107.0 mmol/L (98-107); Potassium 3.2 mmol/L (3.5-5.1); Sodium 143.0 mmol/L (136-145)
[2025-05-22 08:41] LABS: Alanine Aminotransferase 15.0 U/L (7-52); Albumin Globulin Ratio 1.6 (0.9-2); Alkaline Phosphatase 42.0 U/L (34-104); Blood Urea Nitrogen 11.0 mg/dl (6-23); Creatinine Clr Calc Pharmacy 105.0 ml/min; Globulin 2.4 gm/dl (2.5-4.0); Glucose 106.0 mg/dl (70-99(Fasting)); Total Protein 6.3 gm/dl (6.0-8.3)
--- NOTE | 2025-05-22 10:48 | Hospitalist Progress Note ---
Date of Service May 22, 2025 Assessment & Plan (1) Small bowel obstruction: Plan: #Small bowel obstruction History of multiple surgeries ( Appendectomy, cholecystectomy, colectomy) -CT abdomen/pelvis shows post colectomy with ileocolic anastomosis, findings consistent with SBO -NG tube placed 05/20 -Large brown BM on 05/21 and another 05/22 -Surgery following -Suspect she has mild gastritis as well. improved with protonix -Hgb stable. no s/s acute blood loss anemia Plan -Appreciate surgery input -NPO for now. Continue IVF -NG tube per surgery. Might do clamping trial later today -Protonix IV for now -Daily labs -Pain control -Encourage ambulation #Mood disorder -Continue home regimen even while NPO -She is on lamictal and this can be difficult to resume if stopped completely due to risk of SJS #Hypokalemia -Replace and follow I spent a total of 46 minutes coordinating, documenting, and providing care for this patient excluding time spent in the performance of separately billed services. This included personally reviewing all current laboratories and imaging studies, medical reconciliation, outpatient chart review and discussion with specialists Admission and Anticipated Discharge Date Admission Date: May 20, 2025 Subjective Feeling well this AM. Patient denies F/C, CP, palpitations, SOB, dyspnea, abd pain, N/V/D Physical Exam Physical Exam: Vitals and labs reviewed General: Well appearing, NAD HEENT: EOMI, PERRLA Neck: Supple Cardiac: RRR no rubs gallops or murmurs Lungs: CTA no rhonchi wheezing or rales Abd: NG tube. BS positive. NT ND : No garcia MSK: Full ROM. No obvious deformities Ext: No Edema cyanosis Skin: Warm, Dry Neuro: AOx3 No focal deficits. Psych: Normal Mood Results & Data Results & Data Vital Signs (Past 12 Hours) Vital Signs Temp Pulse Resp BP Pulse Ox O2 Del Method 05/22/25 06:57 36.9 C 62 17 108/72 96 Room Air Laboratory Results Abnormal lab results 05/22/25 Range/Units 08:06 WBC 4.12 L (4.8-10.8) K/ul RBC 4.04 L (4.20-5.40) M/uL Hct 35.0 L (37.0-47.0) % MPV 8.4 L (9.4-12.4) fL Potassium 3.2 L (3.5-5.1) mmol/L Glucose 106 H (70-99(Fasting)) mg/dl Globulin 2.4 L (2.5-4.0) gm/dl
[2025-05-22] MEDS: POTASSIUM CHLORIDE / WTR 10 MEQ/100 ML PLCT IV SCH (11:06)
--- NOTE | 2025-05-22 11:52 | Surgery Progress Note ---
Date of Service May 22, 2025 Assessment & Plan (1) Small bowel obstruction: Plan: Clinically improving. Will initiate a clamping trial. After 4 hours if less than 150 cc residual we will pull the NG tube and initiate clear liquids. Admission and Anticipated Discharge Date Admission Date: May 20, 2025 Subjective Patient seen. Feeling much better today. She has had multiple loose bowel movements throughout this morning. Currently no pain or nausea Physical Exam Constitutional: WD/WN, vitals as above no acute distress and not ill appearing Eyes: PERRL, conjunctivae normal, anicteric sclerae EOM intact bilaterally ENMT: external ear and nose normal, oropharynx normal Ears: no hearing impairment Neck: trachea midline, no thyromegaly Respiratory: normal respiratory effort; no respiratory distress and does not use accessory muscles Cardiovascular: Rate/Rhythm: regular rate and regular rhythm Gastrointestinal (Abdomen): Soft. Nontender. Mild distention. Skin: no rashes, warm and dry Psychiatric: Orientation: alert, oriented x 3 and cooperative Results & Data Vital Signs (Past 12 Hours) Vital Signs Temp Pulse Resp BP Pulse Ox O2 Del Method 05/22/25 06:57 36.9 C 62 17 108/72 96 Room Air PG Care Time/CCT Total # of Minutes Spent Total Time Spent with Patient: Total time spent is greater than 50% in coordination of care (as documented) at patient's floor/unit and/or counseling patient: Coding Level of Care Code 83850 SUB INP/OBS CARE 06/17MIN Diagnoses Small bowel obstruction K56.609
[2025-05-23 08:13] VITALS: BP 113/71; PULSE 64; RESP 16; TEMP 97.5; O2SAT 96
[2025-05-23] MEDS: COUGH DROP (SUGAR FREE) LOZ 24 LOZ/1 BOX BUCCAL ONE (08:20)
[2025-05-23 08:54] LABS: Hematocrit (blood only) 34.7 % (37.0-47.0); Hemoglobin 11.9 g/dL (12.0-16.0); Mean Corpuscular Hemoglobin 30.3 pg (25.0-34.0); Mean Corpuscular Volume 88.3 fL (80.0-100.0); Platelet Count 211 K/uL (130-400); RDW Standard Deviation 41.1 fL (36.4-46.3); Red Blood Count 3.93 M/uL (4.20-5.40); White Blood Count 4.37 K/ul (4.8-10.8)
[2025-05-23 09:16] LABS: Alanine Aminotransferase 31.0 U/L (7-52); Albumin Globulin Ratio 1.5 (0.9-2); Albumin Level 3.9 gm/dl (3.4-5.0); Alkaline Phosphatase 43.0 U/L (34-104); Anion Gap 8.0 (3-11); Bilirubin,Total 1.1 mg/dl (0.2-1.0); Blood Urea Nitrogen 7.0 mg/dl (6-23); Calcium 9.0 mg/dl (8.6-10.3); Carbon Dioxide 26.0 mmol/L (21-32); Chloride 106.0 mmol/L (98-107); Creatinine Clr Calc Pharmacy 98.7 ml/min; Globulin 2.6 gm/dl (2.5-4.0); Glucose 122.0 mg/dl (70-99(Fasting)); Potassium 3.1 mmol/L (3.5-5.1); Sodium 140.0 mmol/L (136-145); Total Protein 6.5 gm/dl (6.0-8.3)
--- NOTE | 2025-05-23 10:36 | Surgery Progress Note ---
Date of Service May 23, 2025 Assessment & Plan (1) Small bowel obstruction: Plan: Clinically resolved. Tolerating full liquids. Will advance diet. I am okay with discharge later today or tomorrow. No surgical plans. Please call if any questions or concerns. Admission and Anticipated Discharge Date Admission Date: May 20, 2025 Subjective Patient seen. Doing well. Tolerating diet. No pain or nausea Physical Exam Constitutional: WD/WN, vitals as above no acute distress and not ill appearing Eyes: PERRL, conjunctivae normal, anicteric sclerae EOM intact bilaterally ENMT: external ear and nose normal, oropharynx normal Ears: no hearing impairment Neck: trachea midline, no thyromegaly Respiratory: normal respiratory effort; no respiratory distress and does not use accessory muscles Cardiovascular: Rate/Rhythm: regular rate and regular rhythm Gastrointestinal (Abdomen): normal bowel sounds, soft, nontender, no hepatosplenomegaly Skin: no rashes, warm and dry Psychiatric: Orientation: alert, oriented x 3 and cooperative Results & Data Vital Signs (Past 12 Hours) Vital Signs Temp Pulse Resp BP Pulse Ox O2 Del Method 05/23/25 07:37 36.4 C L 64 16 113/71 96 Room Air, CPAP PG Care Time/CCT Total # of Minutes Spent Total Time Spent with Patient: Total time spent is greater than 50% in coordination of care (as documented) at patient's floor/unit and/or counseling patient: Coding Level of Care Code 33897 SUB INP/OBS CARE 06/17MIN Diagnoses Small bowel obstruction K56.609
--- NOTE | 2025-05-23 13:15 | Discharge Summary ---
Discharge Summary Date of Service May 23, 2025 Principal Dx & Hospital Course #1 = Principal Diagnosis (1) Small bowel obstruction: Ms Corrales is a very pleasant 65F with PMH SBOs who was admitted for SBO. NG tube was placed. surgery consulted. Bowel function returned over the next 24-48 hours. NG tube was removed and her diet was advanced. today she feels very well and wishes to go home. she tolerated solids for lunch today. Re examined again t his afternoon after lunch. no abd pain nausea. Abd soft NT ND. vitals and labs are stable on day of discharge. d/w at bedside. #Small bowel obstruction History of multiple surgeries ( Appendectomy, cholecystectomy, colectomy) -CT abdomen/pelvis shows post colectomy with ileocolic anastomosis, findings consistent with SBO -NG tube placed 05/20 -Large brown BM on 05/21 and another 05/22 -Surgery following -Suspect she has mild gastritis as well. improved with protonix -Hgb stable. no s/s acute blood loss anemia #Mood disorder -Continue home regimen even while NPO -She is on lamictal and this can be difficult to resume if stopped completely due to risk of SJS #Hypokalemia -Replace and follow I spent a total of 38 minutes coordinating, documenting, and providing care for this patient excluding time spent in the performance of separately billed services. This included personally reviewing all current laboratories and imaging studies, medical reconciliation, outpatient chart review and discussion with specialists Notes For Next Care Provider Medication Changes From Visit none Admission HPI Per Admitting Provider History obtained from interview with the patient, discussion with the ED provider and chart review Past medical history of multiple bowel surgery including appendectomy, cholecystectomy, bowel resection for slow transit, bipolar disorder Patient presents to the hospital with abdominal pain, nausea for 1 day. Abdominal pain is in periumbilical region, intermittent; associated with nausea. Patient had multiple history of bowel obstruction in the past. She is tr aveling from [place] and visiting [facility] [place] and reports eating diet with more fiber recently. Her last admission to the hospital for small bowel obstruction was in October of this year in [place]. On presentation to the ED, she was afebrile, normotensive and saturating well on room air. CT abdomen/pelvis shows post colectomy with ileocolic anastomosis, findings consistent with SBO. Patient was evaluated by general surgery and was referred for further admission Discharge Exam Vitals and labs reviewed General: Well appearing, NAD HEENT: EOMI, PERRLA Neck: Supple Cardiac: RRR no rubs gallops or murmurs Lungs: CTA no rhonchi wheezing or rales Abd: S NT ND BS positive : Deffered MSK: Full ROM. No obvious deformities Ext: No Edema cyanosis Skin: Warm, Dry Neuro: AOx3 No focal deficits. Psych: Normal Mood Updated Medication List Medication Instructions Recorded Confirmed Type fluticasone propionate 50 2 spray intranasal PM 05/01/24 05/20/25 History mcg/actuation nasal spray,suspension lamotrigine 100 mg tablet 150 mg PO QAM 05/01/24 05/20/25 History ovrrujfi-hzbutnc-whba-lutein tablet 1 tab PO PM 05/01/24 05/20/25 History cariprazine 1.5 mg capsule 1.5 mg PO QAM 05/19/25 05/20/25 History (Vraylar) quetiapine 100 mg tablet 200 mg PO HS 05/19/25 05/20/25 History quetiapine 25 mg tablet 25 mg PO TID PRN MANIC SYMPTOMS 05/19/25 05/20/25 History Hospital Stay Data Consultations 05/20/25 02:07 Consult General Surgery Routine 05/20/25 02:46 ED Decision to Admit Stat Diagnostic Imagining Performed 05/19/25 23:06 CT abd pelvis IV con only Stat Pending Results Patient Have Any Pending Studies at Discharge: No Discharge Instructions Given to Patient (Per Discharging Provider) Try to eat a low fiber diet for the next few days. if you develop nausea, vomiting or abd pain, please return to ED. Safe travels. if you develop any new rashes on your body, please stop the lamictal and go to the nearest ED. Total Time Total Time Spent Total Time Spent (In Minutes): 38
[2025-05-23] MEDS: POTASSIUM CHLORIDE CRTAB 20 MEQ TABCR PO STA (13:27)
== END 2025-05-23 13:48 | disposition home or self-care (01) | DRG 389 ==
LOC: ED 22:47 → EDINP 05-20 03:05 → 3N 05-20 04:58